=== PATIENT | female | born 1975 | race Caucasian/White ===

== ENCOUNTER 2017-11-21 14:40 | Emergency (ER) | payer SELFPAY ==
[~2017-11-21] VITALS: Ht 152.4 cm; Wt 52.0 kg
[2017-11-21] MEDS ORDERED: TRAMADOL HCL/ACETAMINOPHEN 37.5/325MG TABLET PO ONE (15:30)
[2017-11-21] MEDS ORDERED: IBUPROFEN 800MG TABLET PO ONE (17:15)
[2017-11-21 17:29] VITALS: BP 104/65
== END 2017-11-21 17:45 | disposition home or self-care (01) ==
LOC: ER 14:40
DX: S43.401A Unspecified sprain of right shoulder joint, initial encounter (principal); S20.211A Contusion of right front wall of thorax, initial encounter; S00.83XA Contusion of other part of head, initial encounter; M54.9 Dorsalgia, unspecified; E11.9 Type 2 diabetes mellitus without complications; F17.200 Nicotine dependence, unspecified, uncomplicated; Y08.89XA Assault by other specified means, initial encounter; Y93.89 Activity, other specified; Y92.89 Other specified places as the place of occurrence of the external cause; Y99.8 Other external cause status
CPT/HCPCS: 72100; 73000; 73030; 99284